=== PATIENT | female | born 1950 | race Caucasian/White ===

== ENCOUNTER 2020-03-15 21:16 | Emergency (ER) | payer MEDICARE ==
[~2020-03-15] VITALS: Ht 162.6 cm; Wt 70.5 kg
--- NOTE | 2020-03-15 21:48 | NUR ---
first contact with pt. pt's BP and HR high; feeling flushed. "I scared myself so I'm SOB." Took 's 10mg Lisinopril approx 193. pt's aox4. resps even and unlabored. pt denies any sx at this time. bp/spo2 monitors in place. call light within reach. pt's at bedside.
--- NOTE | 2020-03-15 22:09 | NUR ---
xray in room at this time.
[2020-03-15 22:28] LABS: BASOPHILS # (AUTO) 0.03 x10^3/uL (0-0.1); BASOPHILS % (AUTO) 0 % (0-1); EOSINOPHILS # (AUTO) 0.08 x10^3/uL (0-0.4); EOSINOPHILS % (AUTO) 1 % (1-7); LYMPHOCYTES # (AUTO) 1.68 x10^3/uL (1-3.4); LYMPHOCYTES % (AUTO) 26 % (22-44); MD NO; MEAN CORPUSCULAR HEMOGLOBIN 33.9 pg (27.0-34.8); MEAN CORPUSCULAR HGB CONC 33.7 g/dL (32.4-35.8); MEAN CORPUSCULAR VOLUME 100.6 fL (80-100); MEAN PLATELET VOLUME 7.7 fL (7.4-10.4); MONOCYTES # (AUTO) 0.43 x10^3/uL (0.2-0.8); MONOCYTES % (AUTO) 7 % (2-9); NEUTROPHILS # (AUTO) 4.38 x10^3/uL (1.8-6.8); NEUTROPHILS % (AUTO) 66 % (42-75); PLATELET COUNT 254 x10^3/uL (130-400); RED BLOOD COUNT 3.99 x10^6/uL (3.82-5.3); RED CELL DISTRIBUTION WIDTH 13.3 % (9.6-15.2)
[2020-03-15 22:34] VITALS: BP 134/76
[2020-03-15 22:35] LABS: ALBUMIN 4.5 g/dL (3.4-5.0); ANION GAP 5 mmol/L (5-15); CALCIUM 9.2 mg/dL (8.5-10.1); CHLORIDE 109 mmol/L (98-107); CREATININE 0.89 mg/dL (0.55-1.02)
[2020-03-15 22:38] LABS: TROPONIN I < 0.015 ng/mL (0.000-0.045)
--- NOTE | 2020-03-15 22:45 | NUR ---
pt resting on gurney. pt's aox4. resps even and unlabored. bp/spo2 monitors in place. call light within reach. pt denies any needs or concerns at this time.
--- NOTE | 2020-03-15 23:07 | NUR ---
Patient given discharge instructions and they have confirmed that they understand the instructions. Patient ambulatory with steady gait.
== END 2020-03-15 23:08 | disposition home or self-care (01) ==
LOC: ED 21:56
DX: I10 Essential (primary) hypertension (principal); R42 Dizziness and giddiness; R07.89 Other chest pain; I44.4 Left anterior fascicular block
CPT/HCPCS: 36415; 71045; 80048; 82040; 84484; 85025; 93005; 99285

== ENCOUNTER 2020-10-07 12:16 | Observation (INO) | payer MEDICARE ==
[~2020-10-07] VITALS: Ht 162.6 cm; Wt 61.7 kg
[2020-10-07] MEDS ORDERED: NITROGLYCERIN SINGLE TAB 0.4 MG SL PRN (13:00)
[2020-10-07] MEDS ORDERED: ONDANSETRON 2MG/ML, 2ML IVPush ONE (13:00)
[2020-10-07] MEDS ORDERED: ASPIRIN 81 MG TABLET CHEW PO ONE (13:00)
[2020-10-07] MEDS ORDERED: SODIUM CHLORIDE FLUSH 10ML SYR IVF ONE (13:00)
[2020-10-07] MEDS ORDERED: MORPHINE SULFATE 4 MG/ML, 1ML IVPush PRN (13:00)
[2020-10-07] MEDS ORDERED: ONDANSETRON 2MG/ML, 2ML ONE (13:16)
[2020-10-07] MEDS ORDERED: NITROGLYCERIN SINGLE TAB 0.4 MG SL ONE (13:16)
[2020-10-07] MEDS ORDERED: ASPIRIN 81 MG TABLET CHEW ONE (13:17)
[2020-10-07 13:21] LABS: BASOPHILS % (AUTO) 1 % (0-1); EOSINOPHILS % (AUTO) 0 % (1-7); LYMPHOCYTES % (AUTO) 22 % (22-44); MEAN CORPUSCULAR HEMOGLOBIN 34.1 pg (27.0-34.8); MEAN CORPUSCULAR HGB CONC 35.4 g/dL (32.4-35.8); MEAN PLATELET VOLUME 7.4 fL (7.4-10.4); MONOCYTES % (AUTO) 6 % (2-9); NEUTROPHILS % (AUTO) 72 % (42-75); PLATELET COUNT 273 x10^3/uL (130-400); RED BLOOD COUNT 4.29 x10^6/uL (3.82-5.3); RED CELL DISTRIBUTION WIDTH 12.8 % (9.6-15.2)
[2020-10-07 13:26] LABS: MD NO
--- NOTE | 2020-10-07 13:28 | NUR ---
PIV PLACED, LABS DRAWN AND SENT TO LAB WITH LAB SLIP. MEDS ADMIN PER OCT. PT CONNECTED TO MONITORING. BP TO CYCLE EVERY 15 MIN AFTER NITRO ADMIN. SPOUSE AT BEDSIDE.
[2020-10-07 13:32] LABS: ANION GAP 6 mmol/L (5-15); CALCIUM 9.6 mg/dL (8.5-10.1); CHLORIDE 106 mmol/L (98-107); CREATININE 1.08 mg/dL (0.55-1.02)
[2020-10-07 13:36] LABS: TROPONIN I < 0.015 ng/mL (0.000-0.045)
--- NOTE | 2020-10-07 13:42 | NUR ---
ALL RESULTS ARE BACK AT THIS TIME. CHART UP FOR RECHECK.
[2020-10-07] MEDS ORDERED: SODIUM CHLORIDE 0.9% 1,000ML IVBOLUS ONE (14:00)
--- NOTE | 2020-10-07 14:03 | NUR ---
PT STATES CP IS BETTER. PT STATES SHE GET CHEST PRESSURE INTERMITTENTLY WHILE SITTING ON GURNEY.
[2020-10-07] MEDS ORDERED: ONDANSETRON ODT 4 MG PO PRN (14:30)
[2020-10-07] MEDS ORDERED: ONDANSETRON 2MG/ML, 2ML IVPush PRN (14:30)
[2020-10-07] MEDS ORDERED: ENALAPRILAT 1.25 MG/ML, 2ML IVPush PRN (14:30)
[2020-10-07] MEDS ORDERED: morphine SULFATE 10 MG/ML, 1ML IVPush PRN (14:30)
[2020-10-07] MEDS ORDERED: MELATONIN 5 MG TABLET PO PRN (14:30)
--- NOTE | 2020-10-07 14:34 | NUR ---
REPORT GIVEN TO ASH CEDEÑO. PT RTG TO ROOM 503
--- NOTE | 2020-10-07 14:40 | NUR ---
HOSPITALIST AT BEDSIDE.
[2020-10-07 15:02] LABS: TROPONIN I < 0.015 ng/mL (0.000-0.045)
[2020-10-07 15:04] VITALS: BP 135/77
[2020-10-07] MEDS ORDERED: OMEP-110 PO (15:27)
[2020-10-07] MEDS ORDERED: AMLO-150 PO (15:27)
[2020-10-07] MEDS ORDERED: ROSU40TA PO (15:27)
[2020-10-07] MEDS ORDERED: LISI-170 PO (15:27)
[2020-10-07] MEDS: ACETAMINOPHEN 325 MG TABLET PO PRN (19:20)
[2020-10-07 19:22] VITALS: BP 134/83
[2020-10-07 20:00] VITALS: BP 137/72
[2020-10-07 20:52] LABS: TROPONIN I < 0.015 ng/mL (0.000-0.045)
[2020-10-08 00:59] VITALS: BP 100/48
[2020-10-08 05:06] LABS: ANION GAP 9 mmol/L (5-15); CALCIUM 8.8 mg/dL (8.5-10.1); CHLORIDE 109 mmol/L (98-107); CREATININE 0.84 mg/dL (0.55-1.02)
[2020-10-08 05:19] LABS: BASOPHILS % (AUTO) 1 % (0-1); EOSINOPHILS % (AUTO) 2 % (1-7); LYMPHOCYTES % (AUTO) 46 % (22-44); MEAN CORPUSCULAR HEMOGLOBIN 34.2 pg (27.0-34.8); MEAN CORPUSCULAR HGB CONC 35.4 g/dL (32.4-35.8); MEAN PLATELET VOLUME 7.6 fL (7.4-10.4); MONOCYTES % (AUTO) 11 % (2-9); NEUTROPHILS % (AUTO) 41 % (42-75); PLATELET COUNT 234 x10^3/uL (130-400); RED BLOOD COUNT 3.89 x10^6/uL (3.82-5.3); RED CELL DISTRIBUTION WIDTH 12.7 % (9.6-15.2)
[2020-10-08 05:20] LABS: MD NO
[2020-10-08] MEDS: ACETAMINOPHEN 325 MG TABLET PO PRN (05:41)
[2020-10-08] MEDS ORDERED: ASPIRIN 325 MG TABLET EC PO SCH (06:00)
[2020-10-08 06:38] VITALS: BP 118/70
[2020-10-08] MEDS ORDERED: LISINOPRIL 20 MG TABLET PO SCH (09:00)
[2020-10-08] MEDS ORDERED: AMLODIPINE 5 MG TABLET PO SCH (09:00)
[2020-10-08] MEDS ORDERED: REGADENOSON 0.4 MG/5 ML SYRINGE ONE (09:11)
[2020-10-08 12:06] VITALS: BP 109/72
== END 2020-10-08 13:25 | disposition home or self-care (01) ==
LOC: ED 12:53 → EDIP 14:19 → INTOOBSV 14:19 → 5SO 15:03 → DCLOUNGE 10-08 13:10
PROVIDERS: ADMIT Hospitalist; ATTEND Hospitalist
DX: R07.89 Other chest pain (principal); I10 Essential (primary) hypertension; E78.5 Hyperlipidemia, unspecified; K21.9 Gastro-esophageal reflux disease without esophagitis; E78.00 Pure hypercholesterolemia, unspecified; I25.10 Atherosclerotic heart disease of native coronary artery without angina pectoris; Z79.899 Other long term (current) drug therapy
CPT/HCPCS: 36415; 71045; 78452; 80048; 82040; 83880; 84484; 85025; 93005; 93017; 93306; 96361; 96374; 99285; A9502; G0378; J2405; J2785; J7030

== ENCOUNTER 2021-04-10 20:07 | Emergency (ER) | payer MEDICARE ==
[~2021-04-10] VITALS: Ht 162.6 cm; Wt 65.0 kg
[~2021-04-10 20:07] MED LIST: AMLO-150 PO; LISI-170 PO; OMEP-110 PO; ROSU40TA PO
[2021-04-10 20:57] LABS: BASOPHILS % (AUTO) 1 % (0-1); EOSINOPHILS % (AUTO) 0 % (1-7); LYMPHOCYTES % (AUTO) 17 % (22-44); MEAN CORPUSCULAR HEMOGLOBIN 34.5 pg (27.0-34.8); MEAN CORPUSCULAR HGB CONC 35.1 g/dL (32.4-35.8); MEAN PLATELET VOLUME 7.2 fL (7.4-10.4); MONOCYTES % (AUTO) 5 % (2-9); NEUTROPHILS % (AUTO) 78 % (42-75); PLATELET COUNT 259 x10^3/uL (130-400); RED BLOOD COUNT 4.06 x10^6/uL (3.82-5.3); RED CELL DISTRIBUTION WIDTH 12.7 % (9.6-15.2)
[2021-04-10] MEDS ORDERED: SODIUM CHLORIDE FLUSH 10ML SYR IVF ONE (21:00)
[2021-04-10 21:12] LABS: ALANINE AMINOTRANSFERASE 76 U/L (12-78); ALBUMIN 4.3 g/dL (3.4-5.0); ANION GAP 8 mmol/L (5-15); CALCIUM 9.8 mg/dL (8.5-10.1); CHLORIDE 102 mmol/L (98-107)
[2021-04-10 21:23] LABS: ALKALINE PHOSPHATASE 81 U/L (45-117); BILIRUBIN,TOTAL 0.8 mg/dL (0.2-1.0); FREE T4 (FREE THYROXINE) 0.95 ng/dL (0.76-1.46); TOTAL PROTEIN 7.8 g/dL (6.4-8.2); TROPONIN I < 0.015 ng/mL (0.000-0.045)
--- NOTE | 2021-04-10 21:37 | NUR ---
First contact with patient: patient presents to ER c/o three episodes of lightheadedness, N/V/D followed by palpitations and SOB. Patient states her BP was steadily increasing, starting in the 130s systolic and ending in the 150s systolic. Hx of HTN. Took BP meds around 1800 which is slightly early for patient. Currently, patient has no complaints. Patient is in NAD. Respirations even and unlabored.
[2021-04-10 22:50] VITALS: BP 146/68
== END 2021-04-10 23:09 | disposition home or self-care (01) ==
LOC: ED 22:21
DX: R00.2 Palpitations (principal); R42 Dizziness and giddiness; R11.2 Nausea with vomiting, unspecified; I10 Essential (primary) hypertension; R19.7 Diarrhea, unspecified
CPT/HCPCS: 36415; 71045; 80053; 83735; 84439; 84443; 84484; 85025; 93005; 99285